=== PATIENT | female | born 1990 | race Caucasian/White ===

== ENCOUNTER 2022-03-15 08:19 | Emergency (ER) | payer OTHER, SELFPAY ==
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
[2022-03-15 08:27] VITALS: BP 138/78; PULSE 92; RESP 17; TEMP 36.9; O2SAT 100
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
[2022-03-15 09:46] LABS: Basophils Percent Auto 0.1 % (0.2-1.2); Eosinophils Absolute Auto 0.1 K/mm3 (0-0.3); Eosinophils Percent Auto 1.5 % (0-4.4); Hematocrit 35.2 % (37.0-47.0); Hemoglobin 11.6 g/dL (12.0-15.0); Immature Granulocyte Absolute 0.03 K/mm3 (0.00-0.031); Immature Granulocyte Percent A 0.4 % (0-0.5); Lymphocytes Absolute Auto 1.16 K/mm3 (0.9-3.2); Lymphocytes Percent Auto 14.6 % (18.3-44.2); Mean Corpuscular Hemoglobin 30.9 pg (26-34); Mean Corpuscular Volume 93.6 fl (80-100); Mean Platelet Volume 9.9 fl (7.4-10.4); Monocytes Absolute Auto 0.7 K/mm3 (0.1-0.6); Monocytes Percent Auto 8.9 % (2.6-8.5); Neutrophils Absolute Auto 5.9 K/mm3 (1.3-6.7); Neutrophils Percent Auto 74.5 % (45.5-73.1); Platelet Count Result 252 k/mm3 (150-375); Red Blood Count 3.76 M/mm3 (4.2-5.4); Red Cell Distribution Width 12.5 % (11.5-14.5)
[2022-03-15 09:59] LABS: INR 1.1; Prothrombin Time 13.4 Seconds (11.1-14.7)
[2022-03-15 10:00] LABS: Alanine Aminotransferase 14 U/L (6-35); Albumin Level 4.2 g/dL (3.5-5.1); Alkaline Phosphatase 48 U/L (38-126); Anion Gap 10 mmol/L (8-16); Aspartate Amino Transferase 18 U/L (14-36); Bilirubin,Total 0.3 mg/dL (0.2-1.3); Blood Urea Nitrogen 4 mg/dL (7-17); Calcium 9.2 mg/dL (8.4-10.2); Carbon Dioxide 25 mmol/L (22-30); Chloride 102 mmol/L (98-107); Estimated CRCL calculation 119 ml/min; Estimated Glomerular Filt Rate > 60; Glucose 98 mg/dL (65-110); Partial Thromboplastin Time 26.2 SECONDS (22.3-36.8); Potassium 4.2 mmol/L (3.4-5.0); Sodium 137 mmol/L (137-145)
[2022-03-15 10:16] VITALS: BP 129/58; PULSE 82; RESP 15; O2SAT 100
--- NOTE | 2022-03-15 10:17 | PC.NURSE ---
Pt to U/S via w/c, updated by Sydnee Holder PA-C.
[2022-03-15 10:21] LABS: Add Urine Microscopic? YES; Appearance Urine Cloudy (Clear); Bacteria Urine Trace /hpf; Bilirubin Urine Negative (Negative); Blood Urine Negative (Negative); Color Urine Yellow (Yellow); Glucose Urine UA Negative (Negative); Ketones Urine Negative (Negative); Leukocyte Esterase Ur Negative LEU/UL (Negative); Mucus Urine Rare /lpf; Nitrate Urine Negative (Negative); Protein Urine 1+ mg/dL (Negative); RBC Urine 0-2 /hpf (0-2); Specific Grav Ur 1.012 (1.001-1.035); Squamous Epithelial Cell Urine Rare /hpf (Few); Urobilinogen Urine Negative mg/dL (<2.0); WBC Urine 0-3 /hpf
[2022-03-15] MEDS: ACETAMINOPHEN 500 MG TABLET 1000 MG PO (11:40)
[2022-03-15 11:42] VITALS: BP 123/69; PULSE 68; RESP 15; O2SAT 100
== END 2022-03-15 11:44 | disposition short-term general hospital (02) ==
PROVIDERS: Physician Assistant; Emergency Provider Emergency Medicine; PCP Family Medicine
DX: Z04.1 Encounter for examination and observation following transport accident (principal); O99.012 Anemia complicating pregnancy, second trimester; D64.9 Anemia, unspecified; Z3A.25 25 weeks gestation of pregnancy; V43.52XA Car driver injured in collision with other type car in traffic accident, initial encounter
CPT/HCPCS: 36415; 76815; 80053; 81001; 85025; 85460; 85610; 85730; 86850; 86900; 86901; 99285; A9270

== ENCOUNTER 2023-07-29 18:06 | Emergency (ER) | payer OTHER, SELFPAY ==
[2023-07-29 18:15] VITALS: BP 146/89; PULSE 108; RESP 16; TEMP 37.2; O2SAT 99
--- NOTE | 2023-07-29 18:39 | ED.EAR ---
HPI - Ear Problem General Chief complaint: Ear Stated complaint: Auditory hallucinations Time Seen by Provider: 07/29/23 18:30 Patient presents today stating she has electric listening devices/?bugs? in both of her ears since March. States they give her information about her day and tell her what to do. Recently they have been telling her to kill herself. States her is currently out of town, but he told her to come to urgent care to be evaluated. States she was seen at [facility] in patient's psych overnight 1 night in December, but was very nonspecific about why she was there. States the did not change any of her medications at that time. Related Data Home Medications Medication Instructions Recorded Confirmed dextroamphetamine-amphetamine 20 20 mg PO DAILY 06/02/19 07/29/23 mg tablet (Adderall) letrozole 2.5 mg tablet 2.5 mg PO DAILY 07/29/23 07/29/23 Allergies Allergy/AdvReac Type Severity Reaction Status Date / Time No Known Allergies Allergy Verified 03/15/22 08:33 Review of Systems Review of Systems: CONSTITUTIONAL: Denies body aches, fever, chills, or sweats. EYES: Denies visual changes, redness, or discharge. ENT: Denies rhinorrhea, congestion, sore throat, or otalgia. CARDIOVASCULAR: Denies chest pain, palpitations, or edema. RESPIRATORY: Denies cough or dyspnea. GASTROINTESTINAL: Denies abdominal pain, nausea, vomiting, or diarrhea. GENITOURINARY: Denies dysuria or hematuria. SKIN: Denies rash, itching, or wounds. MUSCULOSKELETAL: Denies back pain, joint pain, or myalgia. NEUROLOGIC: Denies headache, numbness, tingling, or weakness. PSYCH: Auditory hallucinations [facility] Past Medical History Medical History (Updated 07/29/23 @ 18:45 by Meagan Bernal, MARLINE, FLOR) Anxiety Family History Family History Mother Patient's mother is in good health Father Patient's father is in good health Sibling Patient's brother is in good health Other Hypertension Social History Social History Smoking status: Never smoker Alcohol intake: current Comments At time of signature, I have reviewed and agree with nursing past medical, surgical, social and family history unless otherwise noted. Please see nursing chart for further information. There is no relevant family history pertinent to the presenting complaint Exam Narrative: GENERAL: Well-appearing, well-nourished, and in no acute distress. HEAD: Normocephalic, atraumatic. EYES: EOMI. No redness or drainage. Conjunctivae normal. ENT: Mucous membranes pink and moist. Nares clear. No rhinorrhea. TMs normal bilaterally. Throat normal. Uvula midline. NECK: Normal AROM. Supple. No lymphadenopathy. CHEST: No respiratory distress. Clear to auscultation. HEART: Regular rate and rhythm. No murmur appreciated. EXTREMITIES: Normal range of motion. No edema. SKIN: Warm, dry, no rash. Capillary refill normal. Normal skin turgor. NEURO: No focal deficits. Alert and oriented x3. Gait steady. PSYCH: Normal affect. No signs of depression or anxiety. Course Course Level of Care: Express Care Visit Vital Signs Vital signs: Vital Signs Temperature 99 F 07/29/23 18:15 Pulse Rate 108 H 07/29/23 18:15 Respiratory Rate 16 07/29/23 18:15 Blood Pressure 146/89 H 07/29/23 18:15 Pulse Oximetry 99 07/29/23 18:15 Temperature 99 F 07/29/23 18:15 Pulse Rate 108 H 07/29/23 18:15 Respiratory Rate 16 07/29/23 18:15 Blood Pressure 146/89 H 07/29/23 18:15 Pulse Oximetry 99 07/29/23 18:15 Transfer Transfered to: [place] Transportation: Other (Personal vehicle with parent) Transfer rationale: Auditory hallucinations Accepting physician: Bob Medical Decision Making MDM Narrative Medical decision making narrative: Patient will be transferred to [facility] for further evaluat
== END 2023-07-29 18:38 | disposition short-term general hospital (02) ==
PROVIDERS: Emergency Provider Nurse Practitioner
DX: R44.0 Auditory hallucinations (principal); Z79.899 Other long term (current) drug therapy
CPT/HCPCS: 99212; G0463

== ENCOUNTER 2023-07-29 19:23 | Emergency (ER) | payer OTHER, SELFPAY ==
--- NOTE | ~2023-07-29 | CT_ITS ---
EXAMINATION: CT brain wo con DATE: 07/29/2023 20:14 INDICATION: psychosis . TECHNIQUE: Computed tomography (CT) of the head was performed without intravenous contrast. The mA wa s adjusted according to patient size. Iterative reconstruction technique was employed. The dose-lengt h product was 681.00 mGy-cm. COMPARISON: None. FINDINGS: No acute intracranial hemorrhage or extra-axial fluid collection. No hydrocephalus or herniation. 1.5 cm cystic lesion at the pineal gland with peripheral calcificatio n, no internal hyperdensity to suggest hemorrhage. No acute ischemic infarct. Unremarkable dural venous sinus attenuation. No acute osseous abnormality. The aerated spaces are clear. IMPRESSION: No acute intracranial process. 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 Exclude signs o r symptoms of Parinaud syndrome (upward gaze palsy/diplopia, pupillary light-near dissociation, and c onvergence-retraction nystagmus). Consider nonemergent MRI of the brain without and with contrast for further evaluation and as a basis for follow-up. Reviewed, dictated and finalized at location K. [employer] IMPRESSION: No acute intracranial process. 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 Exclude signs or symptoms of Parinaud syndrome (upward gaze palsy/diplop ia, pupillary light-near dissociation, and convergence-retraction nystagmus). Consider nonemergent MRI of the brain without and with contrast for further candida luation and as a basis for follow-up.
[2023-07-29 19:25] VITALS: BP 139/83; PULSE 81; RESP 20; TEMP 36.4; O2SAT 100
--- NOTE | 2023-07-29 20:10 | PC.NURSE ---
Patient expressed that she does not want blood work done because she just had it performed at her PCP. EDP made aware.
--- NOTE | 2023-07-29 21:02 | PC.NURSE ---
Patient refuses urine or COVID tests.
--- NOTE | 2023-07-29 21:02 | ED.GENADULT ---
HPI - General Adult General Chief complaint: Psychiatric Symptoms Stated complaint: headaches, hearing voices Time Seen by Provider: 07/29/23 19:42 History of Present Illness HPI narrative: patient 32-year-old female that presents emergency department with chief complaint of auditory hallucinations. The patient reports that she has narrow bites in her ears that are telling her things at times they do tell her to hurt herself but she knows not to listen to them the patient denies active suicidal or homicidal ideation Related Data Home Medications Medication Instructions Recorded Confirmed dextroamphetamine-amphetamine 20 20 mg PO DAILY 06/02/19 07/29/23 mg tablet (Adderall) letrozole 2.5 mg tablet 2.5 mg PO DAILY 07/29/23 07/29/23 Allergies Allergy/AdvReac Type Severity Reaction Status Date / Time No Known Allergies Allergy Verified 07/29/23 19:29 Review of Systems Review of Systems: A 10 system review of systems was completed on the patient and is negative except for what is stated in the HPI. Nursing and ancillary documentation was reviewed. [facility] Past Medical History Medical History (Updated 07/29/23 @ 21:06 by Misael Muñoz MD) Anxiety Family History Family History Mother Patient's mother is in good health Father Patient's father is in good health Sibling Patient's brother is in good health Other Hypertension Social History Social History Smoking status: Never smoker Alcohol intake: current Substance use type: does not use Exam Narrative: GENERAL: Well-appearing, well-nourished, and in no acute distress. HEAD: Normocephalic, atraumatic. EYES: PERRLA and EOMI. ENT: Nares clear, no rhinorrhea or epistaxis. Mucous membranes moist. NECK: Supple. CHEST: Clear to auscultation. No respiratory distress. HEART: Regular rate and rhythm. No murmur heard. Normal peripheral pulses. ABDOMEN: Soft, nontender, nondistended, normal active bowel sounds. EXTREMITIES: Normal range of motion. No edema. SKIN: Warm, dry, no rash. NEURO: No focal deficits. Alert and oriented x3. PSYCH: Normal mood and affect. Course Vital Signs Vital signs: Vital Signs Temperature 36.4 C 07/29/23 19:25 Pulse Rate 81 07/29/23 19:25 Respiratory Rate 20 07/29/23 19:25 Blood Pressure 139/83 07/29/23 19:25 Pulse Oximetry 100 07/29/23 19:25 Oxygen Delivery Room Air 07/29/23 19:25 Temperature 36.4 C 07/29/23 19:25 Pulse Rate 81 07/29/23 19:25 Respiratory Rate 20 07/29/23 19:25 Blood Pressure 139/83 07/29/23 19:25 Pulse Oximetry 100 07/29/23 19:25 Oxygen Delivery Room Air 07/29/23 19:25 Medical Decision Making MDM Narrative Medical decision making narrative: differential diagnosis includes electrolyte abnormality, substance abuse, psychosis, structural abnormality CT head was obtained as the patient was concerned that she had Veronica bites in her brain that showed no evidence of metallic objects in the rain tissue but did show the possibility of a pineal cyst that recommends an MRI and a nonemergent basis. The patient shows no focal neurological deficits at this time no gaze palsy and no nystagmus this time. The patient was offered mental health evaluation of which the patient has refused and refused blood work and further metabolic workup. The patient is requesting follow-up with her primary care provider. At this time the patient is not suicidal or homicidal nor a risk requiring emergent committal for psychiatric evaluation Vital Signs Vital Signs: Vital Signs Temperature 36.4 C 07/29/23 19:25 Pulse Rate 81 07/29/23 19:25 Respiratory Rate 20 07/29/23 19:25 Blood Pressure 139/83 07/29/23 19:25 Pulse Oximetry 100 07/29/23 19:25 Oxygen Delivery Room Air 07/29/23 19:25 Temperatu
== END 2023-07-29 21:39 | disposition home or self-care (01) ==
PROVIDERS: Emergency Provider Emergency Medicine
DX: R44.0 Auditory hallucinations (principal); E34.8 Other specified endocrine disorders; F41.9 Anxiety disorder, unspecified
CPT/HCPCS: 70450; 81025; 99284